=== PATIENT | male | born 1985 | race Caucasian/White ===

== ENCOUNTER 2020-09-22 22:15 | Emergency (ER) | payer SELFPAY ==
[~2020-09-22] VITALS: Ht 177.8 cm; Wt 66.1 kg
[2020-09-22 22:23] VITALS: BP 129/77
--- NOTE | 2020-09-22 22:49 | ED General ---
General Chief Complaint: General Problems/Pain Stated Complaint: CHEST PAIN History of Present Illness Date Seen by Provider: Sep 22, 2020 Time Seen by Provider: 22:40 Initial Comments 35-year-old male past medical history significant for schizophrenia and admitted methamphetamine use (last used 2 days ago). Presents with initial complaint of chest pain, then it changed to back pain and at time of this history he states he was feeling better without any pain. Patient states that he was not feeling well and could not feel his pulse and then he got worried so he came to the ER. Allergies and Home Medications Patient Home Medication List Home Medication List Reviewed: Yes Review of Systems Review of Systems Constitutional: No chills, No fever; malaise Cardiovascular: see HPI, chest pain; No palpitations, No syncope Gastrointestinal: No abdominal pain, No loss of appetite, No vomiting Musculoskeletal: back pain; No joint pain Psychiatric/Neurological: Anxiety; Denies Seizure, Denies Weakness Past Cgeeoqc-Vucbyp-[id number] Hx Patient Social History Tobacco Use?: Yes Tobacco type used: Cigarettes Smoking Status: Current Everyday Smoker Substance use?: Yes Substance type: Methamphetamine Additional substance use comme: X3 DAYS AGO Substance frequency: Couple times a week Alcohol Use?: No Pt feels they are or have been: No Immunizations Up To Date Influenza Vaccine Up-to-Date: No; Not Current Physical Exam Vital Signs Vital Signs - First Documented 09/22/20 22:23 Temp 36.5 Pulse 95 Resp 16 B/P (MAP) 129/77 (94) Pulse Ox 100 O2 Delivery Room Air Capillary Refill : Less Than 3 Seconds Height, Weight, BMI Height: '" Weight: lbs. oz. kg; 20.00 BMI Method: General Appearance: No Apparent Distress, WD/WN, Anxious HEENT: PERRL/EOMI, Normal ENT Inspection Neck: Non Tender, Supple Respiratory: Chest Non Tender, Lungs Clear, Normal Breath Sounds Cardiovascular: Regular Rate, Rhythm, No Edema, No JVD Gastrointestinal: Non Tender, Soft Back: Normal Inspection, No CVA Tenderness Extremity: Normal Capillary Refill, Non Tender Neurologic/Psychiatric: Alert, Oriented x3, No Motor/Sensory Deficits Skin: Normal Color, Warm/Dry Progress/Results/Core Measures Suspected Sepsis SIRS Temperature: Pulse: 95 Respiratory Rate: 16 Blood Pressure 129 /77 Mean: 94 Results/Orders My Orders Orders - ROXANNE LINDSEY DO Chest 1 View Ap/Pa Only (09/22/20 22:44) Ekg Tracing (09/22/20 22:44) Vital Signs/I&O 09/22/20 22:23 Temp 36.5 Pulse 95 Resp 16 B/P (MAP) 129/77 (94) Pulse Ox 100 O2 Delivery Room Air Capillary Refill : Less Than 3 Seconds Blood Pressure Mean: 94 ECG Initial ECG Impression Date: Sep 22, 2020 Initial ECG Impression Time: 22:50 Initial ECG Rate: 90 Initial ECG Rhythm: Normal Sinus Initial ECG Intervals: Normal Initial ECG Impression: Normal Initial ECG Comparisson: No Previous ECG Available Comment early repol. abnl Diagnostic Imaging Diagonstic Imaging: Xray Comments Date of Exam:09/22/20 CHEST 1 VIEW AP/PA ONLY EXAMINATION: Portable erect AP chest at 1042 PM INDICATION: Chest pain There are no prior studies available for comparison. The heart size is within normal limits. The lungs are clear. There is no sign of failure, pneumonia or pleural effusion. The mediastinum is not widened. The osseous structures are intact. There are small rounded metallic BB-like densities overlying both upper lobes. These may be extraneous to the patient. If further study is desired, then a lateral view would be recommended. IMPRESSION: 1. There is no evidence for an acute cardiopulmonary abnormality. 2. The small BB like densities overlying the upper lungs are of uncertain origin. Additional considerations as above. Dictated by: Dictated on workstation # [id number] Dict: 09/22/20 2317 Trans: 09/23/20 1445 ALBERTINA [id number] Interpreted by: NOLA MONTE MD Electronically signed by: NOLA MONTE MD 09/23/20 1445 Departure Impression Primary Impression: Anxiety about health Additional Impression: Methamphetamine use Disposition: 01 HOME, SELF-CARE Condition: Stable Departure-Patient Inst. Referrals: [facility] [place] PHYSIC[place] ([place]P) Primary Care Physician Patient Instructions: Anxiety, Adult ED Add. Discharge Instructions: establish care with the [facility] clinic for follow up in 2 to 3 days, ER sooner if worse. All discharge instructions reviewed with patient and/or family. Voiced understanding. ROXANNE LINDSEY DO Sep 22, 2020 22:49
--- NOTE | 2020-09-22 23:24 | Diagnostic Imaging Report ---
EXAMINATION: Portable erect AP chest at 1042 PM INDICATION: Chest pain There are no prior studies available for comparison. The heart size is within normal limits. The lungs are clear. There is no sign of failure, pneumonia or pleural effusion. The mediastinum is not widened. The osseous structures are intact. There are small rounded metallic BB-like densities overlying both upper lobes. These may be extraneous to the patient. If further study is desired, then a lateral view would be recommended. IMPRESSION: 1. There is no evidence for an acute cardiopulmonary abnormality. 2. The small BB like densities overlying the upper lungs are of uncertain origin. Additional considerations as above. Dictated by: Dictated on workstation # [id number]
== END 2020-09-22 23:14 | disposition home or self-care (01) ==
LOC: ER FS 22:21
DX: F41.9 Anxiety disorder, unspecified (principal); F15.90 Other stimulant use, unspecified, uncomplicated; F17.210 Nicotine dependence, cigarettes, uncomplicated
CPT/HCPCS: 71045; 93005